=== PATIENT | male | born 2000 | race Hispanic/Latino ===

== ENCOUNTER 2022-03-19 10:19 | Emergency (ER) | payer OTHER ==
[~2022-03-19] VITALS: Ht 180.3 cm; Wt 81.2 kg
[2022-03-19] MEDS ORDERED: IBUPROFEN200 MG PO (11:16)
[2022-03-19] MEDS ORDERED: ACETAMINOPHEN500 MG PO (11:16)
[2022-03-19 11:49] VITALS: BP 142/80
== END 2022-03-19 11:49 | disposition home or self-care (01) ==
LOC: FSED 10:25
DX: S43.491A Other sprain of right shoulder joint, initial encounter (principal); W01.0XXA Fall on same level from slipping, tripping and stumbling without subsequent striking against object, initial encounter; Y93.66 Activity, soccer; Y92.322 Soccer field as the place of occurrence of the external cause
CPT/HCPCS: 99284